=== PATIENT | male | born 2000 | race Caucasian/White ===

== ENCOUNTER 2022-12-08 13:31 | Emergency (ER) | payer OTHER ==
[2022-12-08 13:38] VITALS: BP 113/72; PULSE 68; RESP 20; TEMP 100; BMI 17.4
[2022-12-08] MEDS ORDERED: ONDANSETRON *ODT* 4 MG TABLET SL ONE (14:04)
[2022-12-08] MEDS ORDERED: KETOROLAC TROMETHAMINE 30 MG/1 ML VIAL IM ONE (14:04)
[2022-12-08] MEDS ORDERED: ONDANSETRON *ODT* 4 MG TABLET ONE (14:21)
[2022-12-08] MEDS ORDERED: KETOROLAC TROMETHAMINE 30 MG/1 ML VIAL ONE (14:21)
== END 2022-12-08 15:07 | disposition home or self-care (01) ==
LOC: JERFT 13:31
PROC: 3E0233Z Introduction of Anti-inflammatory into Muscle, Percutaneous Approach (ICD-10-PCS; principal; 2022-12-08)
DX: M79.10 Myalgia, unspecified site (principal); R11.2 Nausea with vomiting, unspecified; B34.9 Viral infection, unspecified; U07.1 COVID-19
CPT/HCPCS: 0241U-QW; 96372; 99284-25; Q0162